=== PATIENT | male | born 1960 | race Caucasian/White ===

== ENCOUNTER → 2017-02-13 | Outpatient (CLI) | payer MEDICARE ==
--- NOTE | 2017-02-16 08:58 | RSPPFT ---
DATE OF PROCEDURE: 02/13/17 COMMENTS: Spirometry shows FVC of 2.8 at 63% of predicted, FEV1 of 2.0 at 56%, FEV1/FVC ratio is decreased. Flow is decreased at FEF 25, FEF 50, FEF 75 and FEF 25-75. There is no response after acutely inhaled bronchodilator. Lung volumes show residual volume is slightly increased. TLC is normal. Diffusion capacity is normal. Flow volume loop indicates an obstructive pattern. IMPRESSION: 1. Mild to moderate obstructive lung disease. 2. No response after bronchodilator treatment. 3. Normal lung volumes. 4. Normal diffusion capacity.
== END ==
LOC: PHRSP 07:52
PROVIDERS: ATTEND Specialist
DX: J44.9 Chronic obstructive pulmonary disease, unspecified (principal)
CPT/HCPCS: 94060; 94726; 94729